=== PATIENT | female | born 1945 | race African-American/Black ===

== ENCOUNTER 2016-04-10 20:40 | Inpatient (IN) | payer MEDICARE, MEDICAID ==
--- NOTE | 2016-04-10 21:31 | ED Physician Chart ---
Chief Complaint/HPI - Patient Information Date Seen:: 04/10/16 Time Seen:: 21:15 Chief Complaint:: facial abrasions History of Present Illness:: patient presents with self-inflicted facial abrasions. She states that she had pruritic bumps on her face and that is why she scratched them sustaining the facial abrasions. Allergies:: Allergies Allergy/AdvReac Type Severity Reaction Status Date / Time No Known Allergies Allergy Verified 04/10/16 21:25 Vitals:: Vital Signs - 8 hr 04/10/16 04/10/16 20:46 20:52 Temp 98.2 F 98.2 F HR 64 64 RR 18 18 BP 107/43 107/43 O2 Sat % 94 94 Historian:: Patient, EMS Review:: Nurse's Note Reviewed Review of Systems - Review of Systems General/Constitutional: No fever, No chills Skin: Skin lesions Head: No headache Eyes: No loss of vision ENT: No earache Neck: No neck pain Cardio Vascular: No chest pain Pulmonary: No SOB GI: No nausea, No vomiting Musculoskeletal: No bone or joint pain, No muscle pain Endocrine: No polyuria, No polydipsia Psychiatric: Prior psych history Hematopoietic: No bruising Allergic/Immuno: No urticaria Neurological: No syncope Past Medical History - Past Medical History Past Medical History: HTN, DM, CHF, Dementia, Other (status post respiratory failure; peripheral vascular disease; hyperlipidemia; hypothyroidism; peptic ulcer disease; anemia) Family History: None Social History: Care Facility Surgical History: other (bilateral below knee amputations) Psychiatricy History: Dementia Medication: Reviewed Family Medical History - Family Member Father History Unknown: Yes Ethnicity: Non- Living Status: Hx Family Cancer: Yes Hx Family Coronary Artery Disease: Yes Hx Family Congestive Heart Failure: No Hx Family Hypertension: No Hx Family Stroke: No Hx Family Diabetes: No Hx Family Seizures: No Hx Family Dementia: No Hx Family AIDS: No Hx Family HIV: No Hx Family COPD: No Hx Family Hepatitis: No Hx Family Psychiatric Problems: No Hx Family Tuberculosis: No Physical Exam - Physical Examination General/Constitutional: No distress Other Gen/Cons comments:: Chronically ill-appearing; alert and oriented to the correct month and correct year Head: Atraumatic Eyes: PERRL Other Eyes comments:: Abrasion right lower eyelid Skin: Nl inspection ENMT: External ears, nose nl Other ENMT comments:: Edentulous; oblique abrasion across nose Neck: No nuchal rigidity Respiratory: Nl effort/Exclusion, Clear to Auscultation Cardio Vascular: RRR GI: No tenderness/rebounding/guarding, No organomegaly, No hernia : No CVA tenderness Other Extremities comments:: Bilateral below knee amputations Neuro/Psych: No focal deficits Labs/Radiology/EKG Results - Lab Results Comments:: Laboratory Results - last 24 hr 04/10/16 04/10/16 04/10/16 21:40 21:44 21:44 WBC 5.8 RBC 2.49 L Hgb 6.6 L* Hct 20.9 L* D MCV 84.2 MCH 26.5 L MCHC Differential 31.5 RDW 23.7 H Plt Count 320 D MPV 6.6 Sodium 139 Potassium 4.5 Chloride 105 Carbon Dioxide 30.5 Anion Gap 8.0 BUN 28 H Creatinine 1.3 H Est GFR ( Amer) 52.2 Est GFR (Non-Af Amer) 43.2 BUN/Creatinine Ratio 21.5 Glucose 194 H Calcium 8.6 Total Bilirubin 0.7 AST 27 ALT 9 Alkaline Phosphatase 46 Total Protein 6.2 Albumin 2.8 L Globulin 3.4 Albumin/Globulin Ratio 0.8 L Valproic Acid 61.2 - Radiology Results Results: CXR: cardiomegaly and elevation of right hemidiaphragm - EKG Interpretations Rhythm: NSR [place]: normal Rate: 63 Comments:: Twave changes ED Septic Shock - . Is Septic Shock (SBP<90, OR Lactate>4 mmol\L) present?: No - <6hrs of presentation: Vital Signs: Vital Signs - 8 hr 04/10/16 04/10/16 20:46 20:52 Temp 98.2 F 98.2 F HR 64 64 RR 18 18 BP 107/43 107/43 O2 Sat % 94 94 Reassessment (Disposition) - Reassessment Reassessment Condition:: Unchanged - Diagnosis Diagnosis:: anemia; facial abrasions; renal insufficiency - Patient Disposition Admitted to:: Med/Surg Spoke to:: Willard Roque Admitting Medical Physician:: Willard Roque Condition at Disposition:: Stable, Unchanged
[2016-04-10 22:18] LABS: MEAN CELL VOLUME 84.2 fl (81-100); MEAN CORPUSCULAR HEMOGLOBIN 26.5 pg (27.0-31.0); MEAN CORPUSCULAR HGB CONC 31.5 pg (28.0-36.0); MEAN PLATELET VOLUME 6.6 fl; PLATELET COUNT 320 Th/cmm (150-400); RED BLOOD COUNT 2.49 Mil/cmm (3.80-5.20); RED CELL DISTRIBUTION WIDTH 23.7 % (11.5-20.0); WHITE BLOOD COUNT 5.8 Th/cmm (4.8-10.8)
[2016-04-10 22:25] LABS: ALB/GLOB RATIO 0.8 (1.0-1.8); BILIRUBIN,TOTAL 0.7 mg/dL (0.3-1.0); BUN/CREATININE RATIO 21.5; CALCIUM SERUM 8.6 mg/dL (8.6-10.3); CARBON DIOXIDE 30.5 mEq/L (21.0-31.0); CREATININE - SERUM 1.3 mg/dL (0.6-1.2); POTASSIUM SERUM 4.5 mEq/L (3.5-5.1)
[2016-04-10 22:29] LABS: HEMATOCRIT 20.9 % (35.0-45.0); HEMOGLOBIN 6.6 gm/dL (11.7-16.1)
[2016-04-10 23:02] LABS: URINE BILIRUBIN NEGATIVE (NEGATIVE); URINE BLOOD NEGATIVE (NEGATIVE); URINE COLOR ORANGE; URINE GLUCOSE (UA) NEGATIVE (NEGATIVE); URINE KETONE 15 mg/dL (NEGATIVE); URINE PH 5.5; URINE PROTEIN 30 mg/dL (NEGATIVE)
[2016-04-10 23:03] LABS: URINE BACTERIA FEW /hpf (NONE SEEN); URINE EPITHELIAL CELLS FEW /lpf (FEW); URINE RBC 0-2 /hpf (0-5); URINE WBC 0-2 /hpf (0-5)
[2016-04-10 23:09] LABS: BAND NEUTROPHILE 2 % (0-10); EOSINOPHIL 2 % (0-5); HYPOCHROMIA 1+; NEUTROPHILS 68 % (40-80); PLATELET ESTIMATE ADEQUATE (NORMAL); TOTAL CELLS COUNTED 100
[2016-04-10] MEDS ORDERED: INSULIN HUMAN REGULAR 100 UNITS/ML UNIT SUBQ SCH (23:59)
[2016-04-11] MEDS: Sodium Chloride 0.45% 1,000 ML IV SCH (02:34)
[2016-04-11 04:37] LABS: BURR CELLS 1+; OVALOCYTES 1+; POLYCHROMASIA 1+
[2016-04-11] MEDS: INSULIN ASPART, RECOMBINANT 100 UNITS/ML SUBQ SCH ×4 (06:32→21:54)
[2016-04-11] MEDS ORDERED: Albuterol/Ipratropium Neb 3 ML AERS HHN PRN (08:23)
[2016-04-11 08:59] LABS: MEAN CELL VOLUME 84.1 fl (81-100); MEAN CORPUSCULAR HEMOGLOBIN 26.7 pg (27.0-31.0); MEAN CORPUSCULAR HGB CONC 31.7 pg (28.0-36.0); MEAN PLATELET VOLUME 6.6 fl; PLATELET COUNT 314 Th/cmm (150-400); RED BLOOD COUNT 2.99 Mil/cmm (3.80-5.20); RED CELL DISTRIBUTION WIDTH 20.2 % (11.5-20.0)
[2016-04-11 09:10] LABS: HEMATOCRIT 25.1 % (35.0-45.0); WHITE BLOOD COUNT 7.6 Th/cmm (4.8-10.8)
--- NOTE | 2016-04-11 09:30 | History & Physical ---
CHIEF COMPLAINT: Facial abrasions and anemia. HISTORY OF PRESENT ILLNESS: This is a 71-year-old female who presents to [facility] ER for self-inflicted wounds to her face, right eye, nose and left lower cheek noted at the assisted facility. The patient has a previous history of dementia, depression, also has a history of anemia, congestive heart failure, hyperlipidemia, hypothyroidism, hypertension, peptic ulcer disease, bilateral below the knee amputation, status post acute respiratory failure, COPD, peripheral vascular disease and diabetes mellitus type 2. While in the ER, initial lab work was drawn. Her CBC, white count was normal at 5.9, but her hemoglobin was low at 6.6, hematocrit was 20.9, platelets 320. She was typed and screened for 2 units of packed red blood cells and transfused. Her Chem-7, sodium was 139, potassium 4.5, chloride 105, bicarbonate 30, BUN 28, creatinine 1.3, glucose 194. AST was 27, ALT 9, alkaline phosphatase 46. TSH was 0.55. PAST MEDICAL HISTORY: Status post acute respiratory failure, COPD, peptic ulcer disease, peripheral vascular disease, diabetes mellitus type 2, hyperlipidemia, hypothyroidism, hypertension, bilateral below the knee amputations, anemia, CHF, depression and dementia. ALLERGIES: No known drug allergies. REVIEW OF SYSTEMS: Unable to obtain due to the patient's current condition. PHYSICAL EXAMINATION: VITAL SIGNS: Temperature 98.5, pulse 70, respirations 18, blood pressure 96/44. GENERAL: This is a 71-year-old female, appears her stated age, cachectic looking. HEENT: Normocephalic, atraumatic. Pupils equal, round, reactive to light and accommodation. Extraocular muscles are intact. Ears: TMs intact. NECK: Supple. Good range of motion. No thyromegaly. No lymphadenopathy. HEART: Regular rate and rhythm. LUNGS: Clear to auscultation. No rales, rhonchi or wheezing. ABDOMEN: Soft, nontender, nondistended. Bowel sounds are active in all 4 quadrants. No rebound tenderness, no rigidity, no guarding. EXTREMITIES: Bilateral below the knee amputation noted. ASSESSMENT: 1. Anemia. Hemoglobin is 6.6. Typed and screened for 2 units of packed red blood cells and transfused. We will repeat H and H for today. 2. Chronic obstructive pulmonary disease. 3. Peripheral vascular disease. 4. Diabetes mellitus type 2. 5. Hyperlipidemia. 6. Hypothyroidism. 7. Hypertension. 8. Peptic ulcer disease. 9. Bilateral below the knee amputations. 10. Congestive heart failure. 11. Depression. 12. Dementia. JOB# [id number]
[2016-04-11 09:36] LABS: NEUTROPHILS 63 % (40-80); TOTAL CELLS COUNTED 100
[2016-04-11 09:37] LABS: ANISOCYTOSIS 2+; PLATELET ESTIMATE ADEQUATE (NORMAL); PLATELET MORPHOLOGY NORMAL (NORMAL); POLYCHROMASIA 2+
[2016-04-11] MEDS: Pantoprazole 40 mg EC Tab PO SCH (09:42)
[2016-04-11] MEDS: Levothyroxine 0.15 Mg Tab PO SCH (09:42)
[2016-04-11] MEDS: Insulin Detemir 100 units/mL 10mL Vial SUBQ SCH ×2 (09:44→21:55)
[2016-04-11] MEDS ORDERED: VTE Chemical Prophylaxis Screen/Admission MC PRN (11:25)
--- NOTE | 2016-04-11 11:36 | Diagnostic Imaging Report ---
Portable chest x-ray HISTORY: Shortness of breath The heart is enlarged. There is a poor inspiration. Linear density is seen in the right perihilar region that extends to the periphery of the chest. Findings may be associated with scarring or subsegmental atelectasis. Atherosclerotic calcification seen within the aortic arch. IMPRESSION: 1. Cardiomegaly with atherosclerotic vascular changes 2. Linear density within the right midlung that may be associated with scarring or subsegmental atelectasis.
[2016-04-11 13:57] LABS: PROTHROMBIN TIME (TEST) > 93.6 SECONDS (9.5-11.5)
[2016-04-11 13:58] LABS: INR > 8.06 (0.5-1.4)
[2016-04-11] MEDS ORDERED: Dextrose 50% 50 mL Abboject IVP ONE ×2 (16:20→16:22)
--- NOTE | 2016-04-11 18:57 | Consultation ---
HEMATOLOGY/ONCOLOGY CONSULTATION: REFERRING PHYSICIAN: Willard Roque M.D. REASON FOR CONSULTATION: Coagulopathy. HISTORY OF PRESENT ILLNESS: This patient is a 71-year-old female with a history of peripheral artery disease, below-knee amputation bilaterally, hypertension. She had a hemoglobin of 6 and transfused and she also has markedly elevated INR; therefore, I was asked to evaluate. PAST MEDICAL HISTORY: COPD, peptic ulcer disease, peripheral vascular disease, diabetes, hypertension, dyslipidemia, below-knee amputation bilaterally. PHYSICAL EXAMINATION: GENERAL: She is awake, noncommunicative. LYMPHATIC: No peripheral lymphadenopathy. ABDOMEN: Soft. EXTREMITIES: Below-knee amputation bilaterally. No active bleeding. LABORATORY DATA: INR 8.06. White count 7.6, hemoglobin 8, platelets 314. ASSESSMENT: 1. Coagulopathy secondary to Coumadin overdose. 2. Peripheral artery disease. 3. Diabetes. 4. Hypertension. 5. Dementia. PLAN: I will start IV vitamin K one dose and follow the hemoglobin and coagulation panel. Thank you, Dr. Roque, for the opportunity to participate in the care of this interesting case for you. JOB# [id number]
--- NOTE | 2016-04-12 01:32 | Consultation ---
The patient was seen, chart reviewed and discussed with staff. HISTORY OF PRESENT ILLNESS: The patient is a 71-year-old female with chronic history of schizophrenia, known to myself from treatment at her facility, started to become more agitated, confused, stressed, scratching her face. The patient started to become more disorganized and she was sent to the hospital, now admitted to medical floor. The patient used to be on antipsychotics, was on Seroquel at higher dose and medications were decreased at her detention facility and since that time she has been decompensating. PAST PSYCHIATRIC HISTORY: Multiple psychiatric hospitalizations and chronic history of schizophrenia. PAST MEDICAL HISTORY: As per H and P. MENTAL STATUS EXAMINATION: The patient is irritable, guarded and appears to be paranoid. The patient admits to having auditory hallucinations. She is oriented to person, knew she was in the hospital and knew her age. The patient was uncooperative with rest of memory testing. ASSESSMENT: Schizophrenia versus schizoaffective disorder in psychotic phase. MEDICAL: As per medical history. PLAN: Would recommend inpatient geropsychiatric hospitalization given the level of agitation, wants to restart the patient back on Seroquel. The patient has been aggressive also towards nursing staff. We will monitor closely. Thank you for the consultation. JOB# [id number]
[2016-04-12] MEDS: Sodium Chloride 0.45% 1,000 ML IV SCH (04:33)
[2016-04-12] MEDS: Pantoprazole 40 mg EC Tab PO SCH (07:09)
[2016-04-12] MEDS: Levothyroxine 0.15 Mg Tab PO SCH (07:10)
[2016-04-12 07:22] LABS: MEAN CELL VOLUME 84.3 fl (81-100); MEAN CORPUSCULAR HEMOGLOBIN 27.3 pg (27.0-31.0); MEAN CORPUSCULAR HGB CONC 32.4 pg (28.0-36.0); MEAN PLATELET VOLUME 6.5 fl; PLATELET COUNT 315 Th/cmm (150-400); RED BLOOD COUNT 2.66 Mil/cmm (3.80-5.20); RED CELL DISTRIBUTION WIDTH 21.6 % (11.5-20.0); WHITE BLOOD COUNT 7.7 Th/cmm (4.8-10.8)
[2016-04-12] MEDS: INSULIN ASPART, RECOMBINANT 100 UNITS/ML SUBQ SCH ×4 (07:37→21:51)
[2016-04-12 07:47] LABS: ALB/GLOB RATIO 0.8 (1.0-1.8); ANION GAP 9.1 (7.0-16.0); BUN/CREATININE RATIO 25.4; CALCIUM SERUM 8.7 mg/dL (8.6-10.3); CARBON DIOXIDE 30.1 mEq/L (21.0-31.0); CREATININE - SERUM 1.3 mg/dL (0.6-1.2); POTASSIUM SERUM 4.2 mEq/L (3.5-5.1)
[2016-04-12 07:58] LABS: HEMOGLOBIN 7.3 gm/dL (11.7-16.1)
[2016-04-12 07:59] LABS: HEMATOCRIT 22.4 % (35.0-45.0)
[2016-04-12 08:34] LABS: BAND NEUTROPHILE 1 % (0-10); EOSINOPHIL 1 % (0-5); NEUTROPHILS 55 % (40-80); TOTAL CELLS COUNTED 100
[2016-04-12 08:35] LABS: PLATELET ESTIMATE ADEQUATE (NORMAL)
[2016-04-12 08:36] LABS: PLATELET MORPHOLOGY NORMAL (NORMAL); POLYCHROMASIA 2+
[2016-04-12 08:37] LABS: ANISOCYTOSIS 2+
[2016-04-12] MEDS ORDERED: D5-0.45NS 1,000 ML IV ONE (08:45)
[2016-04-12] MEDS: Insulin Detemir 100 units/mL 10mL Vial SUBQ SCH ×2 (10:04→22:05)
--- NOTE | 2016-04-12 11:32 | History & Physical ---
REFERRING PHYSICIAN: Dr. Willard Roque. HISTORY OF PRESENT ILLNESS: History reviewed and patient examined. The patient is nonverbal and history is obtained from the medical record. The patient is a 71-year-old woman admitted with self-inflicted wounds of the face, eye and nose and transferred from her senior living facility for additional care. She has history of dementia and depression. She has history of anemia, congestive heart failure, hyperlipidemia, hypothyroidism, hypertension, peptic ulcer disease, chronic obstructive lung disease, peripheral vascular disease and diabetes. She has had bilateral below-knee amputation. There is history of probable paroxysmal atrial fibrillation based on her medications. MEDICATIONS: Include albuterol and Atrovent inhaler, amiodarone 200 mg b.i.d., clonidine 0.1 mg b.i.d. p.r.n., Depakote 500 mg b.i.d., Lexapro 20 mg daily, glipizide 5 mg daily, Levemir insulin 15 units in the morning, 4 units in the evening and NovoLog insulin on sliding scale, Synthroid 0.15 mg daily, Protonix 40 mg daily, Seroquel 25 mg at bedtime and tramadol 50 mg q. 6 hours p.r.n. ALLERGIES: There are no known drug allergies. PHYSICAL EXAMINATION: VITAL SIGNS: Heart rate 64, blood pressure 122/63. GENERAL: The patient moves both upper extremities. She is nonverbal. She has bilateral below knee amputation. NECK: No carotid bruit is heard. CHEST: There is good air exchange bilaterally. LUNGS: Clear to auscultation. Precordium is quiet without lift, heave, thrill or bulge. HEART: No murmur, click or gallop is heard. ABDOMEN: Soft and nontender. Bowel sounds are normal. LABORATORY DATA: Electrocardiogram, sinus rhythm, abnormal tracing because of nonspecific repolarization changes. Chest x-ray is reported by radiologist to show cardiomegaly with atherosclerotic vascular changes and lungs clear except for linear density in the right mid lung field consistent with scarring or subsegmental atelectasis. LABORATORY DATA: Hemoglobin on admission was 6.6. She has subsequently had transfusion. Hemoglobin went up to 8.0 yesterday and is 7.3 this morning. Prothrombin time 93.6, INR 8.06. WBC 7.7, platelets 315. Troponin 0.10, BUN 33, creatinine 1.3, potassium 4.2, sodium 138, albumin 2.9. ASSESSMENT: 1. Dementia. 2. Peripheral vascular disease. 3. Status post bilateral below knee amputation. 4. Diabetes mellitus. 5. Hyperlipidemia. 6. Hypothyroidism. 7. Hypertension. 8. Presumed atrial fibrillation, now in sinus rhythm. COMMENTS: Concur with present regimen. There is no clinical congestive failure at the present time. Troponin is noncardiac. The patient is hemodynamically stable. I recommend continuing her present regimen. Thank you for asking me to participate in the care of your patient. I will be glad to see her again at your request. JOB# [id number]
[2016-04-12 18:31] LABS: INR 1.4 (0.5-1.4); PROTHROMBIN TIME (TEST) 14.8 SECONDS (9.5-11.5)
[2016-04-12] MEDS: Albuterol/Ipratropium Neb 3 ML AERS HHN SCH (18:58)
[2016-04-12] MEDS: Budesonide 0.5 Mg/2 mL Ud HHN SCH (18:58)
--- NOTE | 2016-04-12 19:45 | Admit Criteria Form ---
Admit Criteria Forms - Admit Criteria Diagnosis: ANEMIA, IRON DEFICIENCY OR UNSPECIFIED Clinical Indications for Inpatient Care (Place 'X' for any and all applicable criteria): Admission is indicated for ANY ONE of the following(1)(2)(3)(4)(5)(6)(7): [X] I. Inpatient admission required rather than observation care (Also use Anemia, Iron Deficiency or Unspecified: Observation Care guideline as appropriate) because of ANY ONE of the following: [] a) Hemodynamic instability that is severe or persistent [] b) Active bleeding that cannot be rapidly controlled [] c) CVS symptoms (i.e., dyspnea, chest pain, heart failure) that are severe or persistent [] d) Neurologic symptoms (i.e., cognitive impairment, recurrent syncope or near syncope) that are severe or persistent [] e) Cardiac arrhythmias of immediate concern [] f) Acute peripheral ischemia (e.g., pulseless, cool, mottled, or cyanotic extremity) [] g) High-risk low platelet count [] h) Acute renal failure [] i) Ongoing transfusion for blood loss (greater than 2 units) [] j) IV fluid to replace significant ongoing (eg, >24 hours) losses (> 3 L/m2 per day) [] k) Pulmonary artery catheter monitoring [] l) Supplemental oxygen or respiratory treatments for over 24 hours that are performable only in acute inpatient setting [] m) Immediate inpatient surgery [X] n) Other condition, treatment or monitoring requiring inpatient admission [] II Active massive hemorrhage [] III. Active hemolysis with rapidly progressive anemia [A](6) Extended stay beyond goal length of stay may be needed for (17)(18) []a) Diagnosed cause of anemia requiring longer hospitalization (eg, active GI bleeding, immune hemolysis requiring electrophoresis, complications of malignancy requiring acute care []b) Continued emergent anemia indicators (23) []c) Transfusion reactions []d) Associated leukopenia or thrombocytopenia needing inpatient care []e) Active comorbidities (eg, renal failure, heart failure) The original [employer] content created by [employer] has been revised. The portions of the content which have been revised are identified through the use of italic text or in bold. [employer] has neither reviewed nor approved the modified material. All other unmodified content is copyright [employer]. Please see references footnoted in the original [facility] edition 2016 Admit Criteria Met?: Yes
[2016-04-12 20:16] LABS: HEMATOCRIT 29.7 % (35.0-45.0); HEMOGLOBIN 9.8 gm/dL (11.7-16.1)
[2016-04-13] MEDS: Levothyroxine 0.15 Mg Tab PO SCH (07:04)
[2016-04-13] MEDS: Pantoprazole 40 mg EC Tab PO SCH (07:04)
[2016-04-13] MEDS: Budesonide 0.5 Mg/2 mL Ud HHN SCH ×2 (07:12→19:22)
[2016-04-13] MEDS: Albuterol/Ipratropium Neb 3 ML AERS HHN SCH ×4 (07:12→19:22)
[2016-04-13] MEDS: INSULIN ASPART, RECOMBINANT 100 UNITS/ML SUBQ SCH ×4 (07:24→22:10)
[2016-04-13 08:06] LABS: ABG SOURCE Arterial; BE(B) 5.8 mmol/L (-3.0-3.0); HCO3 32.1 mmol/L (20.0-26.0); pH 7.39 (7.35-7.45)
[2016-04-13 08:07] LABS: ALLEN TEST PASS; CRITICAL VALUES REPORTED BY PW; FIO2 28
[2016-04-13] MEDS: Lactulose 10 Gm/15 mL 30mL UDC PO SCH ×2 (08:36→16:39)
[2016-04-13] MEDS: Insulin Detemir 100 units/mL 10mL Vial SUBQ SCH ×2 (08:38→22:10)
--- NOTE | 2016-04-13 09:09 | Consultation ---
PULMONARY CONSULTATION NOTE REASON FOR CONSULTATION: Help the patient with abnormal chest x-ray. CONSULT NOTE: This is a 71-year-old female who has multiple psychiatric illnesses and basically, the patient was brought to the Emergency Room initially with self-inflicted areas secondary to previous depression, dementia and subsequently, the patient was seen to have abnormal chest x-ray. I was asked to see this patient for further care and necessary treatment. The patient is currently awake, at times answering appropriately to question, at times not. Carries multiple medical problems including history of anemia, dyslipoproteinemia, hypothyroidism, hypertension, COPD, peripheral vascular disease, etc., ____ history of depression. PAST MEDICAL HISTORY: She has previous history of respiratory failure, COPD, peripheral vascular disease, suspect obstructive sleep apnea syndrome. ALLERGIES: Allergic history is nil. PHYSICAL EXAMINATION: GENERAL: This is an elderly looking female, awake, very slow, has significant tardive dyskinesia at time of facial movement, not in any acute respiratory distress on exam. VITAL SIGNS: Temperature is 98.2, blood pressure 139/57. HEAD AND NECK: The patient's examination of the head is essentially unremarkable. There is some scab on the nose area. Oral cavity showed dry tongue, otherwise very small oropharyngeal opening. The patient's neck is very short: No nodes in the neck could be palpated. Good bilateral carotid upstroke. CHEST: Shows diminished air entry with occasional rhonchi. HEART: Regular. ABDOMEN: Soft, nontender. RADIOLOGY DATA: Chest x-ray showed cardiomegaly with plate-like atelectasis in the right upper lobe region with slight interstitial changes in upper lobe and there is some gas in the belly as well. LABORATORY STUDIES: White count is 7.7, hemoglobin 7.3. Electrolytes are okay. IMPRESSION: 1. The patient has a mild exacerbation of chronic obstructive pulmonary disease. 2. Significant abuse of tobacco with history of previous respiratory failure. 3. Plate-like atelectasis probably from a small mucous plug. 4. Suspect obstructive sleep apnea syndrome associated with hypertension, dyslipoproteinemia as well as tobacco dependency, including suspect obstructive sleep apnea syndrome. PLANS AND SUGGESTIONS: We will continue breathing treatment little bit more frequently. We would add inhaled steroid to current treatment. We will give some laxative. Overall, no other major aggressive treatment needed to be done and go from there. JOB# [id number]
--- NOTE | 2016-04-13 09:09 | Progress Notes ---
SUBJECTIVE: The patient was seen, discussed with staff, and chart reviewed. Still restless, anxious, still irritable and paranoid. The patient's insight continues to be poor and judgment remains impaired. ASSESSMENT: The patient is still in psychotic phase, highly disorganized. Considered a risk for self-harm the patient was scratching on her face prior to admission and she can just be easily agitated. PLAN: We will continue medication management. Continue supportive measures. Consider psychiatric hospitalization. [facility]# [id number]
[2016-04-13 12:34] LABS: HEMATOCRIT 30.9 % (35.0-45.0); HEMOGLOBIN 10.2 gm/dL (11.7-16.1); MEAN CELL VOLUME 86.1 fl (81-100); MEAN CORPUSCULAR HEMOGLOBIN 28.4 pg (27.0-31.0); MEAN PLATELET VOLUME 6.8 fl; PLATELET COUNT 272 Th/cmm (150-400); RED BLOOD COUNT 3.59 Mil/cmm (3.80-5.20); RED CELL DISTRIBUTION WIDTH 18.3 % (11.5-20.0); WHITE BLOOD COUNT 7.1 Th/cmm (4.8-10.8)
[2016-04-13 12:55] LABS: ALB/GLOB RATIO 0.8 (1.0-1.8); ALKALINE PHOSPHATASE 64 U/L (34-104); ANION GAP 6.1 (7.0-16.0); BILIRUBIN,TOTAL 1.1 mg/dL (0.3-1.0); BUN - UREA NITROGEN 29 mg/dL (7-25); CALCIUM SERUM 8.7 mg/dL (8.6-10.3); CARBON DIOXIDE 31.5 mEq/L (21.0-31.0); CHLORIDE 104 mEq/L (98-107); GLUCOSE 94 mg/dL (70-105); POTASSIUM SERUM 4.6 mEq/L (3.5-5.1); SGOT 32 U/L (13-39); SGPT/ALT 11 U/L (7-52); SODIUM SERUM 137 mEq/L (136-145)
[2016-04-13 13:06] LABS: ANISOCYTOSIS 1+; BAND NEUTROPHILE 4 % (0-10); EOSINOPHIL 2 % (0-5); HYPOCHROMIA 2+; NEUTROPHILS 62 % (40-80); PLATELET ESTIMATE ADEQUATE (NORMAL); TOTAL CELLS COUNTED 100
--- NOTE | 2016-04-14 02:44 | Progress Notes ---
PROBLEMS LIST: 1. Abnormal chest x-ray. 2. Chronic obstructive pulmonary disease. 3. Psychosis. 4. Facial injury and also history suspect of obstructive sleep apnea syndrome with possibly hypertension. SYMPTOMS: Nil. The patient is awake, alert, quite lucid and appropriate answers through the questions and does not seem to be in any acute respiratory distress. PHYSICAL EXAMINATION: VITAL SIGNS: On exam, BP is 98.2, pulse is 50, saturation is 94% on average on 2 liters. NECK: Veins not visualized. CHEST: Shows clear with diminished air entry. HEART: Regular. ABDOMEN: Soft and nontender. LABORATORY DATA: White count is 7.31. Electrolytes are okay. ABGs are pending. ASSESSMENT: The patient clinically appears to be reasonably stable, not much changed. PLANS AND SUGGESTIONS: We will go ahead and continue current treatment. We will discuss with RT, about blood gases, continue other treatment and go from there. JOB# [id number]
[2016-04-14 06:41] LABS: INR 1.7 (0.5-1.4); PROTHROMBIN TIME (TEST) 18.2 SECONDS (9.5-11.5)
[2016-04-14] MEDS: Levothyroxine 0.15 Mg Tab PO SCH (06:47)
[2016-04-14] MEDS: Pantoprazole 40 mg EC Tab PO SCH (06:48)
[2016-04-14] MEDS: INSULIN ASPART, RECOMBINANT 100 UNITS/ML SUBQ SCH ×3 (07:11→16:58)
[2016-04-14] MEDS: Albuterol/Ipratropium Neb 3 ML AERS HHN SCH ×3 (08:06→15:35)
[2016-04-14] MEDS: Budesonide 0.5 Mg/2 mL Ud HHN SCH (08:06)
[2016-04-14] MEDS: Lactulose 10 Gm/15 mL 30mL UDC PO SCH (09:30)
[2016-04-14] MEDS: Insulin Detemir 100 units/mL 10mL Vial SUBQ SCH (11:43)
--- NOTE | 2016-04-14 22:40 | Progress Notes ---
SUBJECTIVE: The patient was seen, discussed with staff, chart is reviewed. Remains forgetful, easily agitated, at times irritable. The patient is still paranoid, suspicious. Her insight is still poor, judgment remains impaired. ASSESSMENT AND PLAN: The patient might benefit from psychiatric hospitalization once medically cleared. We will continue Seroquel 25 mg p.o. at bedtime. JOB# [id number]
--- NOTE | 2016-04-15 07:22 | Progress Notes ---
PROBLEM LIST: 1. Chronic obstructive pulmonary disease exacerbation. 2. Atelectasis. 3. Underlying multiple psychological issues. 4. Obstructive sleep apnea syndrome. SYMPTOMS: Nil. She is probably being discharged to go to the [facility]. The patient ____. No more shortness of breath, coughing or wheezing. PHYSICAL EXAMINATION: VITAL SIGNS: Temperature is 97.9, blood pressure 158/41 and saturation is 95% on supplemental oxygen. ENT: Shows no new changes. CHEST: Shows clear with diminished air entry. HEART: Regular. EXTREMITIES: Shows no peripheral edema. ASSESSMENT: The patient is clinically stable respiratory sanchez. PLANS AND SUGGESTIONS: Okay for plan per Dr. Roque and go from there. JOB# [id number]
--- NOTE | 2016-05-06 01:17 | Discharge Summary ---
PRELIMINARY DIAGNOSES: 1. Anemia. 2. Chronic obstructive pulmonary disease. 3. Peripheral vascular disease. 4. Diabetes mellitus type 2. 5. Hyperlipidemia. 6. Hypothyroidism. 7. Hypertension. 8. Peptic ulcer disease. 9. Bilateral below the knee amputations. 10. Congestive heart failure. 11. Depression. 12. Dementia. DISCHARGE DIAGNOSES: 1. Anemia, status post blood transfusion of 2 units of packed red blood cells. 2. Chronic obstructive pulmonary disease. 3. Peripheral vascular disease. 4. Diabetes mellitus type 2. 5. Hyperlipidemia. 6. Hypothyroidism. 7. Hypertension. 8. Peptic ulcer disease. 9. Bilateral below-knee amputations. 10. Congestive heart failure. 11. Depression. 12. Dementia. BRIEF HISTORY OF PRESENT ILLNESS: This is a 71-year-old female who presents to [facility] ER for self-inflected wounds to her face, right eye, nose, left lower cheek noted at the alf facility. The patient has a previous history of dementia, depression, history of anemia, congestive heart failure, hyperlipidemia, hypothyroidism, hypertension, peptic ulcer disease, bilateral below the knee amputations, status post acute respiratory failure, COPD, peripheral vascular disease, and diabetes mellitus type 2. While in the ER, her initial lab work was done. Her CBC, white count was normal at 5.9, her hemoglobin was low at 6.6. Her hematocrit was also low at 20.9, platelets were 320,000. HOSPITAL COURSE: The patient improved during her hospital stay, was typed and crossed for 2 units of packed red blood cells. The patient improved after blood transfusion with increased energy and less fatigue. Her initial hemoglobin was 6.6. After the 2 units were transfused, her hemoglobin increased to 8.0 on 04/11/2016. On 04/12/2016, it had dropped down to 7.3. She was given 2 additional units of packed red blood cells. After transfusion, on 04/13/2016, her hemoglobin was noted to be 10.2. During her hospital stay, the patient had been seen and evaluated by Dr. Norton for her anemia. The patient was noted to have coagulopathy due to Coumadin overdose, at which point she was given vitamin K dose during her hospital stay. Her lab work revealed a PT/INR, which was 8.06. Her Coumadin was held during her hospital stay. Her INR was then repeated on 04/12, which had gone down to 1.4 and then on 04/14 her Coumadin had been started and was noted to be 1.7. The patient also was seen and evaluated by Dr. Kassidy Woods, had evaluated her because of an abnormal chest x-ray. He noted on the x-ray, the x-ray had shown some cardiomegaly with plate-like atelectasis in the right upper lobe with slight interstitial changes. The patient was given breathing treatments, which helped improve her oxygenation, was given steroids before treatment while being admitted at the hospital. The patient was subsequently discharged in stable condition and was transferred back to the [facility] and was to continue her current medications. JOB# [id number]
== END 2016-04-14 19:00 | DRG 918 ==
LOC: ER 20:40 → MSI 22:48
PROVIDERS: ADMIT Family Medicine; ATTEND Family Medicine
PROC: 30233N1 Transfusion of Nonautologous Red Blood Cells into Peripheral Vein, Percutaneous Approach (ICD-10-PCS; principal; 2016-04-11)
DX: T45.511A Poisoning by anticoagulants, accidental (unintentional), initial encounter (principal); D68.9 Coagulation defect, unspecified; F03.90 Unspecified dementia, unspecified severity, without behavioral disturbance, psychotic disturbance, mood disturbance, and anxiety; I50.9 Heart failure, unspecified; I11.0 Hypertensive heart disease with heart failure; E11.51 Type 2 diabetes mellitus with diabetic peripheral angiopathy without gangrene; E44.1 Mild protein-calorie malnutrition; J44.1 Chronic obstructive pulmonary disease with (acute) exacerbation; J98.11 Atelectasis; D64.9 Anemia, unspecified; K27.9 Peptic ulcer, site unspecified, unspecified as acute or chronic, without hemorrhage or perforation; E78.5 Hyperlipidemia, unspecified; E03.9 Hypothyroidism, unspecified; F32.9 Major depressive disorder, single episode, unspecified; F25.9 Schizoaffective disorder, unspecified; F17.210 Nicotine dependence, cigarettes, uncomplicated; G47.33 Obstructive sleep apnea (adult) (pediatric); S00.81XA Abrasion of other part of head, initial encounter; N28.9 Disorder of kidney and ureter, unspecified; Y92.89 Other specified places as the place of occurrence of the external cause; Z79.4 Long term (current) use of insulin; Z89.512 Acquired absence of left leg below knee; Z82.49 Family history of ischemic heart disease and other diseases of the circulatory system; Z89.511 Acquired absence of right leg below knee
CPT/HCPCS: 36415-UA; 36600-90; 71010-TC; 80053-TC; 80164-TC; 81001-TC; 82803-TC; 82948-90; 83036-90; 84443-TC; 84484-TC; 85007-TC; 85014-TC; 85018-TC; 85027-TC; 85610-TC; 86592-TC; 86850-TC; 86900-TC; 86901-TC; 86922-TC; 90799; 93005; 94760; J1815; J3430; P9016; Z7610